=== PATIENT | male | born 1955 | race Two or more races ===

== ENCOUNTER 2016-04-04 08:06 | Day surgery (SDC) | payer BC ==
[~2016-04-04] VITALS: Ht 167.6 cm; Wt 60.2 kg
[2016-04-04 08:53] VITALS: Ht 167.6 cm; Wt 60.2 kg
[2016-04-04] MEDS ORDERED: PROPOFOL 40 ML ONE (09:21)
[2016-04-04] MEDS ORDERED: LIDOCAINE 2% (SDV) 5 ML INJ ONE (09:21)
[2016-04-04 09:23] VITALS: BP 183/87; PULSE 67; RESP 15
[2016-04-04] MEDS ORDERED: PROPOFOL 20 ML ONE ×2 (09:59→10:09)
[2016-04-04] MEDS ORDERED: hydrALAzine 20 MG INJ ONE (09:59)
[2016-04-04 10:56] VITALS: BP 162/88; RESP 20
--- NOTE | 2016-04-04 23:26 | GILP ---
DATE OF PROCEDURE: NAME OF PROCEDURES: 1. Esophagogastroduodenoscopy and biopsy. 2. Colonoscopy and biopsy. SURGEON: Dian Adamson MD PREOPERATIVE DIAGNOSES: 1. Upper abdominal pain. 2. Hemetemesis. 3. Screening colonoscopy. POSTOPERATIVE DIAGNOSES: 1. Gastroesophageal reflux disease. 2. Gastritis with erosions. 3. Gastric mucosal biopsies were taken for Helicobacter pylori test. 4. Diverticulosis of the colon with segmental colitis in the sigmoid region with narrowed lumen bec ause of edema. 5. The colonoscope could not be advanced further. 6. Upper endoscope was used and scope was advanced to the full length of the scope. 7. Because of the short length of the upper scope, the cecum could not be reached. 8. The patient had multiple sigmoid polyps and they were removed using the biopsy forceps. 9. Internal hemorrhoids. INDICATION FOR THE PROCEDURE: Mr. Amado Pressley is a 61-year-old male patient who had upper abdomi nal pain and hematemesis. The patient also needed screening colonoscopy. He had history of weight loss. The patient was scheduled for endoscopy and colonoscopy. The procedures and possible complications are well explained to the patient. The patient understood and consented to the procedures. DESCRIPTION OF PROCEDURE: Under the influence of anesthesia, the gastroscope was carefully introduc ed into the esophagus and, under direct vision, it was advanced to the stomach and through the pylor us into the duodenal bulb and descending duodenum. FINDINGS: ESOPHAGUS: The patient had gastroesophageal reflux disease. STOMACH: He had gastritis with erosions. Gastric mucosal biopsies were taken for H. pylori test. Duodenum was normal. The colonoscope was carefully introduced in the rectum and it was advanced to the sigmoid colon. Th e patient had multiple large sigmoid polyps, and they were removed using the biopsy forceps. The pa tient was noted to have diverticulosis of the sigmoid colon with segmental colitis and edema and the scope could not be advanced further. The colonoscope was pulled out and upper endoscope was carefully inserted and, under direct vision, it was advanced to the whole length of the scope. Because of the short nature of the scope, the cec um could not be reached. The patient was again noted to have internal hemorrhoids. He tolerated the procedures very well and there was no complication from the procedures. At the end of the procedures, he was awake with stable vital signs and he was discharged home to the care of h is family. IMPRESSION: 1. Gastroesophageal reflux disease. 2. Gastritis with erosions. 3. Gastric mucosal biopsies were taken for Helicobacter pylori test. 4. Diverticulosis of the colon with segmental colitis in the sigmoid region with narrowed lumen bec ause of edema. 5. The colonoscope could not be advanced further. 6. Upper endoscope was used and scope was advanced to the full length of the scope. 7. Because of the short length of the upper scope, the cecum could not be reached. 8. The patient had multiple sigmoid polyps and they were removed using the biopsy forceps. 9. Internal hemorrhoids. PLAN: 1. Nexium 24 hours p.o. q.a.m. 2. Await histopathology reports. 3. The patient will need elective barium enema for the evaluation of the proximal part of the colon at a later date. Dictated By: DIAN BARCENAS/MIK Conf#: [id number] DID#: [id number] CC: DIAN ADAMSON MD;*EndCC*
== END 2016-04-04 10:54 | disposition home or self-care (01) ==
LOC: GIL 08:06
PROVIDERS: ATTEND Internal Medicine Gastroenterology
DX: Z12.11 Encounter for screening for malignant neoplasm of colon (principal); D12.5 Benign neoplasm of sigmoid colon; K29.60 Other gastritis without bleeding; K21.9 Gastro-esophageal reflux disease without esophagitis; K57.90 Diverticulosis of intestine, part unspecified, without perforation or abscess without bleeding; K64.8 Other hemorrhoids
CPT/HCPCS: 43239; 45380; 87081; 88305; 88312; J0360; Z7610

== ENCOUNTER 2017-01-11 12:06 | Emergency (ER) | payer BC ==
[~2017-01-11] VITALS: Wt 61.1 kg
[2017-01-11] MEDS ORDERED: SOFO1TAB PO (13:35)
[2017-01-11] MEDS ORDERED: KETOROLAC 60 MG INJ IM STA (13:58)
[2017-01-11] MEDS ORDERED: morphine 10 MG INJ IM ONE (14:00)
[2017-01-11] MEDS ORDERED: METHOCARBAMOL 750 MG TAB PO ONE (14:00)
--- NOTE | 2017-01-11 15:47 | RADRPT ---
PROCEDURE: CT Lumbar Spine without contrast. CLINICAL INDICATION: Lumbar spine pain. TECHNIQUE: The study was performed on a multislice multidetector CT scanner. Spiral axial 1 mm im ages were obtained through the lumbar spine without intravenous contrast. 1 or more of the following dose reduction techniques were utilized: Automated exposure control, adjustment of the mA and/or k V according to patient's size, iterative reconstruction technique. Coronal and sagittal reformation s were obtained. The images were reviewed on a PACS workstation. RADIATION DOSE: CTDIvol: 8.9 mGyDLP: 307.3 mGy-cm COMPARISON: No prior studies are available for comparison. FINDINGS: There is 6 mm retrolisthesis of L5 on S1. There are anterior osteophytes at L5-S1 with severe disc-s pace narrowing, worse in the posterior aspect. The remaining intervertebral discs are preserved. The vertebral body heights are maintained. The marrow signal is within normal limits. There is a mild l eft convex scoliosis centered at L4-5. There is no evidence of fracture or dislocation. The posterio r elements are unremarkable. The paraspinal soft tissues unremarkable. No significant paraspinal so ft tissue swelling. There is moderate atherosclerotic calcification of the aorta and proximal iliac vessels. There are multiple calcified renal stones in the bilateral kidneys. There is no evidence of hydronephrosis at this time. L1-L2: There is a 1-2 mm annular disc bulge. The thecal sac and lateral recesses are patent. Ther e is mild bilateral facet spondylosis. The neural foramina are patent. L2-L3: There is a 5-6 mm annular disc bulge moderate indentation on the ventral thecal sac. The th ecal sac measures 7.8 mm midline AP diameter. There is moderate left and mild right lateral recess n arrowing. There is mild to moderate bilateral facet hypertrophy. There is mild bilateral neural fora lowell narrowing. L3-L4: There is a 2 mm annular disc bulge. The thecal sac and lateral recesses are patent. There is mild bilateral facet spondylosis. The neural foramina are patent. L4-L5: There is a 3 mm annular disc bulge asymmetric to the right foraminal/far lateral region. Th e thecal sac is patent, measuring 8.7 mm midline AP diameter. There is mild narrowing of the right l ateral recess. The left lateral recess is patent. There is mild to moderate bilateral neural foramin al narrowing. L5-S1: There is 6 mm retrolisthesis of L5 and S1 with prominent 3-4 mm disc/osteophyte complex asym metric to the foraminal regions. The thecal sac is patent measuring 10 mm midline AP diameter. There is mild narrowing of both lateral recesses. There is severe bilateral neural foraminal narrowing. IMPRESSION: 1. No acute abnormality of the lumbar spine. No evidence of fracture. 2. Moderate spondylosis at L5-S1 with 3-4 mm disc/osteophyte complex asymmetric to the foraminal re gions. This results in severe bilateral neural foraminal narrowing and mild narrowing of both latera l recesses. The central thecal sac is patent. 3. 5-6 mm annular disc bulge at L2-3 with mild to moderate narrowing of the lumbar thecal sac and m oderate left lateral recess narrowing. 4. The remaining lumbar spine demonstrates mild spondylosis without significant narrowing of the marci mbar thecal sac, lateral recesses or neural foramina. RPTAT: [facility]AS .Souleymane Yarbrough MD, Date Time Electronically viewed and signed by .Souleymane Yarbrough MD, on 01/11/2017 15:47 .S/
[2017-01-11] MEDS ORDERED: HYDR-906 PO (16:41)
[2017-01-11] MEDS ORDERED: ORPH100T PO (16:41)
[2017-01-11] MEDS ORDERED: NAPR-688 PO (16:41)
[2017-01-11 16:46] VITALS: BP 161/82; PULSE 62; RESP 18
--- NOTE | 2017-01-11 16:58 | ERD ---
ER Documentation Chief Complaint Chief Complaint MID-BACK PAIN, ONSET 9 DAYS, NO INJURY HPI This 61-year-old male comes in complaining of Pain to his lower back. 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 She has been exacerbated for the last week and a half. No injuries. His urination is normal he does not have leg weakness. ROS All systems reviewed and are negative except as per history of present illness. Medications Home Meds Active Scripts Orphenadrine Citrate (Norflex) 100 Mg Tablet.sa, 100 MG PO BID for MUSCLE SPASMS , #20 TAB.SA Prov:KELSIE DOZIER DO 01/11/17 Naproxen* (Naproxen*) 500 Mg Tablet, 500 MG PO BID Y for PAIN, #20 TAB Prov:KELSIE DOZIER DO 01/11/17 Hydrocodone/Acetaminophen ([place] 5-325 Tablet) 1 Each Tablet, 1 EACH PO Q6, #24 TAB Prov:EKLSIE DOZIER DO 01/11/17 Reported Medications Sofosbuvir/Velpatasvir (Epclusa 400 mg-100 mg Tablet) 1 Each Tablet, 1 TAB PO DAILY, #28 01/11/17 Discontinued Reported Medications [None] No Conflict Check 04/04/16 Allergies Allergies: Coded Allergies: No Known Drug Allergies (Verified Allergy, Unknown, 04/04/16) PMhx/Soc History of Surgery: No Anesthesia Reaction: No Hx Neurological Disorder: No Hx Respiratory Disorders: No Hx Cardiac Disorders: No Hx Psychiatric Problems: No Hx Miscellaneous Medical Probl: Yes (LIVER CIRRHOSIS) Hx Alcohol Use: Yes (3-4 TIMES /WEK) Hx Substance Use: No Hx Tobacco Use: Yes (1/2 PACK/DAY) Smoking Status: Current some day smoker Physical Exam Vitals Vital Signs Date Time Temp Pulse Resp B/P Pulse Ox O2 Delivery O2 Flow Rate FiO2 01/11/17 16:46 62 18 161/82 100 Room Air 01/11/17 13:17 61 18 178/90 100 Room Air 01/11/17 12:09 98.1 78 18 196/101 100 Physical Exam Const: [] Mild to moderate distress. Head: Atraumatic Eyes: Normal Conjunctiva ENT: Normal External Ears, Nose and Mouth. Neck: Full range of motion.. Skin: No petechiae or rashes Back: No midline tenderness, bilateral lumbar paraspinal muscle spasm with tenderness the right lumbar paraspinal area. Ext: No cyanosis, or edema Neur: Awake and alert oriented 3, no focal deficits, 5 out of 5 strength bilateral lower extremities, distal pulses intact Psych: Normal Mood and Affect Results 24 hrs Current Medications Medications (Trade) Dose Ordered Sig/Leonora Route PRN Reason Start Time Stop Time Status Last Admin Dose Admin Morphine Sulfate (morphine) 6 mg ONCE ONCE IM 01/11/17 14:00 01/11/17 14:01 DC 01/11/17 14:07 Ketorolac Tromethamine (Toradol) 60 mg ONCE STAT IM 01/11/17 13:58 01/11/17 14:00 DC 01/11/17 14:07 Methocarbamol (Robaxin) 750 mg ONCE ONCE PO 01/11/17 14:00 01/11/17 14:01 DC 01/11/17 14:31 Procedures/MDM Spondylolysis with arthritis and spinal stenosis. After 4 mg of morphine, 60 mg of IM Toradol in the tab of Robaxin he is feeling much better the emergency room is able to move back in for left and right ambulate well. I have very low suspicion for cauda equina syndrome as patient has no symptoms of this except for back pain. Going to discharge with [place], naproxen, Norflex. I am also recommending calling his primary care doctor to get a referral to an orthospine or neurosurgical doctor to address the spondylolysis and stenosis. 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 Get a referral for and Ortho spine doctor or Neurosurgeon. See the doctor sooner or return here if your condition worsens before your appointment time. KELSIE DOZIER DO Jan 11, 2017 16:58
== END 2017-01-11 16:46 | disposition home or self-care (01) ==
LOC: E/R 12:06
DX: M47.816 Spondylosis without myelopathy or radiculopathy, lumbar region (principal); M62.830 Muscle spasm of back; F17.210 Nicotine dependence, cigarettes, uncomplicated
CPT/HCPCS: 72131; 96372; J1885; J2270; Z7502; Z7610